=== PATIENT | female | born 1960 | race Hispanic/Latino ===

== ENCOUNTER 2021-10-17 11:33 | Observation (INO) | payer MEDICARE ==
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
[2021-10-17] MEDS ORDERED: SODIUM CHLORIDE 0.9% 1000 ML 1,000 ML IV ONE (12:23)
--- NOTE | 2021-10-17 13:19 | XRay Report ---
CHEST 1 VIEW 10/17/2021 12:07 PM INDICATION / CLINICAL INFORMATION: stage IV lung cancer, p/w weakness. COMPARISON: None available. FINDINGS: SUPPORT DEVICES: Right Holhnt-g-Chix terminates at the cavoatrial junction in good position. HEART / MEDIASTINUM: No significant abnormality. LUNGS / PLEURA: No significant pulmonary or pleural abnormality. No pneumothorax. ADDITIONAL FINDINGS: No significant additional findings. IMPRESSION: 1. No acute findings. Signer Name: Lazaro Jackson Jr, MD Signed: 10/17/2021 1:15 PM Workstation Name: [id number]
[2021-10-17] MEDS ORDERED: PROMETHAZINE 12.5 MG/10 ML ORAL LIQD PO ONE (13:24)
[2021-10-17 13:28] LABS: Alanine Aminotransferase 32 units/L (7-56); Albumin 3.6 g/dL (3.9-5); Blood Urea Nitrogen 4 mg/dL (7-17); Calcium 9.4 mg/dL (8.4-10.2); Hemolysis Index 6
[2021-10-17 13:32] LABS: BUN/Creatinine Ratio 7
[2021-10-17 14:37] LABS: Bilirubin,Urine NEG (Negative); Blood,Urine NEG (Negative); Color,Urine Yellow (Yellow); Protein,Urine <15 mg/dL mg/dL (Negative); Urobilinogen,Urine < 2.0 mg/dL (<2.0)
[2021-10-17 14:42] LABS: Bacteria,Urine 1+ /HPF (Negative)
[2021-10-17 14:45] LABS: Basophils # (Auto) 0.1 K/mm3 (0.0-0.1); Basophils % (Auto) 1.1 % (0.0-1.8); Eosinophils # (Auto) 0.1 K/mm3 (0.0-0.4); Eosinophils % (Auto) 1.7 % (0.0-4.3); Hematocrit 34.1 % (30.3-42.9); Hemoglobin 11.4 gm/dl (10.1-14.3); Lymphocytes # (Auto) 0.8 K/mm3 (1.2-5.4); Lymphocytes % (Auto) 18.1 % (13.4-35.0); Mean Corpuscular HGB Conc 34 % (30-34); Mean Corpuscular Volume 98 fl (79-97); Monocytes # (Auto) 0.3 K/mm3 (0.0-0.8); Monocytes % (Auto) 6.5 % (0.0-7.3); Platelet Count 218 K/mm3 (140-440); Red Blood Count 3.48 M/mm3 (3.65-5.03); Red Cell Distribution Width 15.9 % (13.2-15.2)
[2021-10-17] MEDS ORDERED: cefTRIAXone/NS 1 GM/50 ML 1 GM/50 ML BAG IV ONE (14:50)
[2021-10-17] MEDS ORDERED: IPRATROPIUM/ALBUTEROL SULFATE 3 ML AMPUL.NEB IH ONE (16:15)
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
[2021-10-17] MEDS ORDERED: ONDANSETRON 4 MG/2 ML INJ IV PRN (22:05)
[2021-10-17] MEDS ORDERED: METOCLOPRAMIDE 10 MG/2 ML INJ IV PRN (22:05)
[2021-10-18] MEDS: SODIUM CHLORIDE 0.9% 1000 ML 1,000 ML IV SCH ×2 (03:02→23:37)
[2021-10-18 05:46] LABS: Basophils % (Auto) 0.4 % (0.0-1.8); Eosinophils # (Auto) 0.1 K/mm3 (0.0-0.4); Eosinophils % (Auto) 2.2 % (0.0-4.3); Hemoglobin 13.1 gm/dl (10.1-14.3); Lymphocytes # (Auto) 0.7 K/mm3 (1.2-5.4); Lymphocytes % (Auto) 16.5 % (13.4-35.0); Mean Corpuscular HGB Conc 33 % (30-34); Mean Corpuscular Volume 99 fl (79-97); Monocytes # (Auto) 0.3 K/mm3 (0.0-0.8); Monocytes % (Auto) 6.9 % (0.0-7.3); Platelet Count 272 K/mm3 (140-440); Red Blood Count 4.02 M/mm3 (3.65-5.03); Red Cell Distribution Width 16.4 % (13.2-15.2)
[2021-10-18 06:05] LABS: Alanine Aminotransferase 28 units/L (7-56); Albumin 3.5 g/dL (3.9-5); Blood Urea Nitrogen 4 mg/dL (7-17); Calcium 9.4 mg/dL (8.4-10.2); Hemolysis Index 91
[2021-10-18 06:18] LABS: BUN/Creatinine Ratio 8
[2021-10-18] MEDS: HYDROmorphone 0.5 MG/0.5 ML INJ IV PRN (08:48)
[2021-10-18] MEDS: IPRATROPIUM/ALBUTEROL SULFATE 3 ML AMPUL.NEB IH SCH ×4 (08:49→20:10)
[2021-10-18] MEDS: cefTRIAXone/NS 1 GM/50 ML 1 GM/50 ML BAG IV SCH (09:05)
[2021-10-18] MEDS ORDERED: HEPARIN 5,000 UNIT/1 ML VIAL SUB-Q SCH (10:00)
--- NOTE | 2021-10-18 10:32 | Electrocardiograph Report ---
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
--- NOTE | 2021-10-18 13:31 | Progress Note ---
Assessment and Plan Assessment and plan: #Stage IV lung cancer with metastases to brain #Failure to thrive #Severe debility/deconditioning Patient endorses currently being on palliative chemotherapy and radiation ther apy Patient endorses being ready for hospice. Hospice initiation has been started from admission. Continue analgesics and supportive management #Acute cystitis without hematuria Urinalysis revealing moderate leukocyte esterase, WBC 16 Continue Rocephin 1 g every 24 hours #Chronic hypoxic respiratory failure Continue supplemental oxygen (baseline 2-3 L nasal cannula) #History of DVT Continue home Xarelto 10 mg daily #Moderate protein caloric nutrition Albumin 3.5; secondary to chemotherapy and radiation therapy in addition to having metastatic lung cancer Starting dietary supplementation #Advanced care planning -Disease education conducted, care plan discussed, diagnoses discussed, prognosis discussed, and patient acknowledges understanding with care plan -Time: +30 min #Discharge planning - Patient is pending completion of hospice set up - Case management has been made aware. - Discharge is tentatively 24-48 hours Social: Patient has limited family support and currently lives in [facility]. This may play a role in determining a hospice facility versus home hospice. Disposition Plan: Pending hospice Total Time Spent with Patient (Minutes): 45 min History Interval history: No acute events overnight. Hospitalist Physical - Constitutional Vitals: Temp Pulse Resp BP Pulse Ox 98.4 F 115 H 16 127/81 95 10/18/21 12:00 10/18/21 12:00 10/18/21 12:00 10/18/21 12:00 10/18/21 12:00 General appearance: Present: no acute distress, cachectic - EENT Eyes: Present: PERRL, EOM intact ENT: hearing intact, clear oral mucosa, dentition normal - Neck Neck: Present: supple, normal ROM - Respiratory Respiratory effort: normal Respiratory: bilateral: diminished (on 3L NC (baseline)) - Cardiovascular Rhythm: regular Heart Sounds: Present: S1 & S2 - Extremities Extremities: no ischemia, pulses intact, pulses symmetrical, No edema, normal temperature, normal color Peripheral Pulses: within normal limits - Abdominal General gastrointestinal: soft, non-tender, non-distended, normal bowel sounds - Integumentary Integumentary: Present: clear, warm, dry - Psychiatric Psychiatric: appropriate mood/affect, intact judgment & insight, memory intact, cooperative - Neurologic Neurologic: CNII-XII intact - Allied Health Allied health notes reviewed: nursing Results - Labs CBC & Chem 7: 10/18/21 04:56 10/18/21 04:56 Labs: Laboratory Last Values WBC 4.4 K/mm3 (4.5-11.0) L 10/18/21 04:56 RBC 4.02 M/mm3 (3.65-5.03) 10/18/21 04:56 Hgb 13.1 gm/dl (10.1-14.3) 10/18/21 04:56 Hct 40.0 % (30.3-42.9) 10/18/21 04:56 MCV 99 fl (79-97) H 10/18/21 04:56 MCH 33 pg (28-32) H 10/18/21 04:56 MCHC 33 % (30-34) 10/18/21 04:56 RDW 16.4 % (13.2-15.2) H 10/18/21 04:56 Plt Count 272 K/mm3 (140-440) 10/18/21 04:56 Lymph % (Auto) 16.5 % (13.4-35.0) 10/18/21 04:56 [place] % (Auto) 6.9 % (0.0-7.3) 10/18/21 04:56 Eos % (Auto) 2.2 % (0.0-4.3) 10/18/21 04:56 Baso % (Auto) 0.4 % (0.0-1.8) 10/18/21 04:56 Lymph # (Auto) 0.7 K/mm3 (1.2-5.4) L 10/18/21 04:56 [place] # (Auto) 0.3 K/mm3 (0.0-0.8) 10/18/21 04:56 Eos # (Auto) 0.1 K/mm3 (0.0-0.4) 10/18/21 04:56 Baso # (Auto) 0.0 K/mm3 (0.0-0.1) 10/18/21 04:56 Seg Neutrophils % 74.0 % (40.0-70.0) H 10/18/21 04:56 Seg Neutrophils # 3.2 K/mm3 (1.8-7.7) 10/18/21 04:56 Sodium 138 mmol/L (137-145) 10/18/21 04:56 Potassium 4.2 mmol/L (3.6-5.0) 10/18/21 04:56 Chloride 102.8 mmol/L (98-107) 10/18/21 04:56 Carbon Dioxide 24 mmol/L (22-30) 10/18/21 04:56 Anion Gap 15 mmol/L 10/18/21 04:56 BUN 4 mg/dL (7-17) L 10/18/21 04:56 Creatinine 0.5 mg/dL (0.6-1.2) L 10/18/21 04:56 Estimated GFR > 60 ml/min 10/18/21 04:56 BUN/Creatinine Ratio 8 % 10/18/21 04:56 Glucose 97 mg/dL (65-100) 10/18/21 04:56 Calcium 9.4 mg/dL (8.4-10.2) 10/18/21 04:56 Total Bilirubin 0.30 mg/dL (0.1-1.2) 10/18/21 04:56 AST 33 units/L (5-40) 10/18/21 04:56 ALT 28 units/L (7-56) 10/18/21 04:56 Alkaline Phosphatase 254 units/L (35-129) H 10/18/21 04:56 Total Protein 6.4 g/dL (6.3-8.2) 10/18/21 04:56 Albumin 3.5 g/dL (3.9-5) L 10/18/21 04:56 Albumin/Globulin Ratio 1.2 % 10/18/21 04:56 Urine Color Yellow (Yellow) 10/17/21 Unknown Urine Turbidity Clear (Clear) 10/17/21 Unknown Urine pH 6.0 (5.0-7.0) 10/17/21 Unknown Ur Specific [place] 1.012 (1.003-1.030) 10/17/21 Unknown Urine Protein <15 mg/dl mg/dL (Negative) 10/17/21 Unknown Urine Glucose (UA) Neg mg/dL (Negative) 10/17/21 Unknown Urine Ketones Neg mg/dL (Negative) 10/17/21 Unknown Urine Blood Neg (Negative) 10/17/21 Unknown Urine Nitrite Neg (Negative) 10/17/21 Unknown Urine Bilirubin Neg (Negative) 10/17/21 Unknown Urine Urobilinogen < 2.0 mg/dL (<2.0) 10/17/21 Unknown Ur Leukocyte Esterase Mod (Negative) 10/17/21 Unknown Urine WBC (Auto) 16.0 /HPF (0.0-6.0) H 10/17/21 Unknown Urine RBC (Auto) 4.0 /HPF (0.0-6.0) 10/17/21 Unknown U Epithel Cells (Auto) 11.0 /HPF (0-13.0) 10/17/21 Unknown Urine Bacteria (Auto) 1+ /HPF (Negative) 10/17/21 Unknown Microbiology: Microbiology 10/17/21 Unknown Urine,Clean Catch Urine Culture - Preliminary Gram Negative Hima Rainey/IV: Voiding Method Toilet Active Medications - Current Medications Current Medications: Generic Name Dose Route Start Last Admin Trade Name Freq PRN Reason Stop Dose Admin Acetaminophen 650 mg 10/17/21 22:05 Acetaminophen 325 Mg Tab PO Q4H PRN Pain MILD(1-3)/Fever >100.5/NOBLES Albuterol/Ipratropium 1 ampul 10/18/21 08:00 10/18/21 08:49 Ipratropium/Albuterol Sulfate 3 Ml Ampul.Neb IH 1 ampul Q4HRT ALLYSON Administration Heparin Sodium (Porcine) 5,000 unit 10/18/21 10:00 10/18/21 09:07 Heparin 5,000 Unit/1 Ml Vial SUB-Q 5,000 unit Q12HR ALLYSON Administration Hydromorphone HCl 1 mg 10/17/21 22:05 10/18/21 08:48 Hydromorphone 0.5 Mg/0.5 Ml Inj IV 1 mg Q3H PRN Administration Pain , Severe (7-10) Sodium Chloride 1,000 mls @ 75 mls/hr 10/17/21 22:15 10/18/21 03:02 Nacl 0.9% 1000 Ml IV 75 mls/hr DIRECT ALLYSON Administration Ceftriaxone Sodium 1 gm in 50 mls @ 100 mls/hr 10/18/21 10:00 10/18/21 09:05 Rocephin/Ns 1 Gm/50 Ml IV 100 mls/hr Q24HR ALLYSON Administration Protocol Metoclopramide HCl 10 mg 10/17/21 22:05 Metoclopramide 10 Mg/2 Ml Inj IV Q6H PRN Nausea And Vomiting Morphine Sulfate 2 mg 10/17/21 22:05 Morphine 2 Mg/1 Ml Inj IV Q4H PRN Pain, Moderate (4-6) Ondansetron HCl 4 mg 10/17/21 22:05 Ondansetron 4 Mg/2 Ml Inj IV Q8H PRN Nausea And Vomiting Oxycodone/Acetaminophen 1 tab 10/17/21 22:05 Oxycodone /Acetaminophen 5-325mg Tab PO Q6H PRN Pain, Moderate (4-6) Sodium Chloride 10 ml 10/18/21 10:00 Sodium Chloride 0.9% 10 Ml Flush Syringe IV BID ALLYSON Sodium Chloride 10 ml 10/17/21 22:05 Sodium Chloride 0.9% 10 Ml Flush Syringe IV PRN PRN LINE FLUSH
[2021-10-18] MEDS: RIVAROXABAN 10 MG TAB PO SCH (17:40)
[2021-10-18] MEDS: ACETAMINOPHEN 325 MG TAB PO PRN (20:27)
[2021-10-19] MEDS: IPRATROPIUM/ALBUTEROL SULFATE 3 ML AMPUL.NEB IH SCH ×5 (02:55→22:34)
[2021-10-19] MEDS: oxyCODONE /ACETAMINOPHEN 5-325MG TAB PO PRN ×2 (08:03→16:25)
[2021-10-19] MEDS: RIVAROXABAN 10 MG TAB PO SCH (09:16)
[2021-10-19] MEDS: cefTRIAXone/NS 1 GM/50 ML 1 GM/50 ML BAG IV SCH (09:17)
--- NOTE | 2021-10-19 16:41 | Progress Note ---
Assessment and Plan Assessment and plan: #Stage IV lung cancer with metastases to brain #Failure to thrive #Severe debility/deconditioning Patient endorses currently being on palliative chemotherapy and radiation ther apy Patient endorses being ready for hospice. Hospice initiation has been started from admission. Continue analgesics and supportive management #Acute cystitis without hematuria Urinalysis revealing moderate leukocyte esterase, WBC 16 Continue Rocephin 1 g every 24 hours (will complete on 10/20/2021). #Chronic hypoxic respiratory failure Continue supplemental oxygen (baseline 2-3 L nasal cannula) #History of DVT Continue home Xarelto 10 mg daily #Moderate protein caloric nutrition Albumin 3.5; secondary to chemotherapy and radiation therapy in addition to having metastatic lung cancer Starting dietary supplementation #Advanced care planning -Disease education conducted, care plan discussed, diagnoses discussed, prognosis discussed, and patient acknowledges understanding with care plan -Time: +30 min #Discharge planning - Patient is pending completion of hospice set up - Case management has been made aware. - Discharge is tentatively 24-48 hours Social: Patient has limited family support and currently lives in [facility]. This may play a role in determining a hospice facility versus home hospice. Disposition Plan: Pending hospice authorization Total Time Spent with Patient (Minutes): 45 min History Interval history: No acute events overnight. Hospitalist Physical - Constitutional Vitals: Temp Pulse Resp BP Pulse Ox 98.0 F 105 H 16 134/85 100 10/19/21 15:48 10/19/21 15:48 10/19/21 15:48 10/19/21 15:48 10/19/21 15:48 General appearance: Present: no acute distress, cachectic - EENT Eyes: Present: PERRL, EOM intact ENT: hearing intact, clear oral mucosa, other (dentures) - Neck Neck: Present: supple, normal ROM - Respiratory Respiratory effort: normal Respiratory: bilateral: diminished (2L nasal cannula (baseline)) - Cardiovascular Rhythm: regular Heart Sounds: Present: S1 & S2 - Extremities Extremities: no ischemia, pulses intact, pulses symmetrical, No edema, normal temperature, normal color Peripheral Pulses: within normal limits - Abdominal General gastrointestinal: soft, non-tender, non-distended, normal bowel sounds - Integumentary Integumentary: Present: clear, warm, dry - Psychiatric Psychiatric: appropriate mood/affect, intact judgment & insight, memory intact, cooperative - Neurologic Neurologic: CNII-XII intact, moves all extremities - Allied Health Allied health notes reviewed: nursing Results - Labs CBC & Chem 7: 10/18/21 04:56 10/18/21 04:56 Labs: Laboratory Last Values WBC 4.4 K/mm3 (4.5-11.0) L 10/18/21 04:56 RBC 4.02 M/mm3 (3.65-5.03) 10/18/21 04:56 Hgb 13.1 gm/dl (10.1-14.3) 10/18/21 04:56 Hct 40.0 % (30.3-42.9) 10/18/21 04:56 MCV 99 fl (79-97) H 10/18/21 04:56 MCH 33 pg (28-32) H 10/18/21 04:56 MCHC 33 % (30-34) 10/18/21 04:56 RDW 16.4 % (13.2-15.2) H 10/18/21 04:56 Plt Count 272 K/mm3 (140-440) 10/18/21 04:56 Lymph % (Auto) 16.5 % (13.4-35.0) 10/18/21 04:56 [place] % (Auto) 6.9 % (0.0-7.3) 10/18/21 04:56 Eos % (Auto) 2.2 % (0.0-4.3) 10/18/21 04:56 Baso % (Auto) 0.4 % (0.0-1.8) 10/18/21 04:56 Lymph # (Auto) 0.7 K/mm3 (1.2-5.4) L 10/18/21 04:56 [place] # (Auto) 0.3 K/mm3 (0.0-0.8) 10/18/21 04:56 Eos # (Auto) 0.1 K/mm3 (0.0-0.4) 10/18/21 04:56 Baso # (Auto) 0.0 K/mm3 (0.0-0.1) 10/18/21 04:56 Seg Neutrophils % 74.0 % (40.0-70.0) H 10/18/21 04:56 Seg Neutrophils # 3.2 K/mm3 (1.8-7.7) 10/18/21 04:56 Sodium 138 mmol/L (137-145) 10/18/21 04:56 Potassium 4.2 mmol/L (3.6-5.0) 10/18/21 04:56 Chloride 102.8 mmol/L (98-107) 10/18/21 04:56 Carbon Dioxide 24 mmol/L (22-30) 10/18/21 04:56 Anion Gap 15 mmol/L 10/18/21 04:56 BUN 4 mg/dL (7-17) L 10/18/21 04:56 Creatinine 0.5 mg/dL (0.6-1.2) L 10/18/21 04:56 Estimated GFR > 60 ml/min 10/18/21 04:56 BUN/Creatinine Ratio 8 % 10/18/21 04:56 Glucose 97 mg/dL (65-100) 10/18/21 04:56 Calcium 9.4 mg/dL (8.4-10.2) 10/18/21 04:56 Total Bilirubin 0.30 mg/dL (0.1-1.2) 10/18/21 04:56 AST 33 units/L (5-40) 10/18/21 04:56 ALT 28 units/L (7-56) 10/18/21 04:56 Alkaline Phosphatase 254 units/L (35-129) H 10/18/21 04:56 Total Protein 6.4 g/dL (6.3-8.2) 10/18/21 04:56 Albumin 3.5 g/dL (3.9-5) L 10/18/21 04:56 Albumin/Globulin Ratio 1.2 % 10/18/21 04:56 Urine Color Yellow (Yellow) 10/17/21 Unknown Urine Turbidity Clear (Clear) 10/17/21 Unknown Urine pH 6.0 (5.0-7.0) 10/17/21 Unknown Ur Specific [place] 1.012 (1.003-1.030) 10/17/21 Unknown Urine Protein <15 mg/dl mg/dL (Negative) 10/17/21 Unknown Urine Glucose (UA) Neg mg/dL (Negative) 10/17/21 Unknown Urine Ketones Neg mg/dL (Negative) 10/17/21 Unknown Urine Blood Neg (Negative) 10/17/21 Unknown Urine Nitrite Neg (Negative) 10/17/21 Unknown Urine Bilirubin Neg (Negative) 10/17/21 Unknown Urine Urobilinogen < 2.0 mg/dL (<2.0) 10/17/21 Unknown Ur Leukocyte Esterase Mod (Negative) 10/17/21 Unknown Urine WBC (Auto) 16.0 /HPF (0.0-6.0) H 10/17/21 Unknown Urine RBC (Auto) 4.0 /HPF (0.0-6.0) 10/17/21 Unknown U Epithel Cells (Auto) 11.0 /HPF (0-13.0) 10/17/21 Unknown Urine Bacteria (Auto) 1+ /HPF (Negative) 10/17/21 Unknown Nasal Screen MRSA (PCR) Negative (Negative) 10/18/21 02:35 Microbiology: Microbiology 10/17/21 Unknown Urine,Clean Catch Urine Culture - Final Proteus Mirabilis Rainey/IV: Voiding Method Toilet Active Medications - Current Medications Current Medications: Generic Name Dose Route Start Last Admin Trade Name Freq PRN Reason Stop Dose Admin Acetaminophen 650 mg 10/17/21 22:05 10/18/21 20:27 Acetaminophen 325 Mg Tab PO 650 mg Q4H PRN Administration Pain MILD(1-3)/Fever >100.5/NOBLES Albuterol/Ipratropium 1 ampul 10/19/21 08:00 10/19/21 13:45 Ipratropium/Albuterol Sulfate 3 Ml Ampul.Neb IH 1 ampul Q6HRT ALLYSON Administration Hydromorphone HCl 1 mg 10/17/21 22:05 10/18/21 08:48 Hydromorphone 0.5 Mg/0.5 Ml Inj IV 1 mg Q3H PRN Administration Pain , Severe (7-10) Sodium Chloride 1,000 mls @ 75 mls/hr 10/17/21 22:15 10/18/21 23:37 Nacl 0.9% 1000 Ml IV 75 mls/hr DIRECT ALLYSON Administration Ceftriaxone Sodium 1 gm in 50 mls @ 100 mls/hr 10/18/21 10:00 10/19/21 09:17 Rocephin/Ns 1 Gm/50 Ml IV 10/24/21 10:29 100 mls/hr Q24HR ALLYSON Administration Protocol Metoclopramide HCl 10 mg 10/17/21 22:05 Metoclopramide 10 Mg/2 Ml Inj IV Q6H PRN Nausea And Vomiting Morphine Sulfate 2 mg 10/17/21 22:05 Morphine 2 Mg/1 Ml Inj IV Q4H PRN Pain, Moderate (4-6) Ondansetron HCl 4 mg 10/17/21 22:05 Ondansetron 4 Mg/2 Ml Inj IV Q8H PRN Nausea And Vomiting Oxycodone/Acetaminophen 1 tab 10/17/21 22:05 10/19/21 16:25 Oxycodone /Acetaminophen 5-325mg Tab PO 1 tab Q6H PRN Administration Pain, Moderate (4-6) Rivaroxaban 10 mg 10/18/21 14:00 10/19/21 09:16 Rivaroxaban 10 Mg Tab PO 10 mg QDAY ALLYSON Administration Protocol Sodium Chloride 10 ml 10/18/21 10:00 10/19/21 09:17 Sodium Chloride 0.9% 10 Ml Flush Syringe IV 10 ml BID ALLYSON Administration Sodium Chloride 10 ml 10/17/21 22:05 Sodium Chloride 0.9% 10 Ml Flush Syringe IV PRN PRN LINE FLUSH
[2021-10-19] MEDS: SODIUM CHLORIDE 0.9% 1000 ML 1,000 ML IV SCH (21:45)
[2021-10-20] MEDS: IPRATROPIUM/ALBUTEROL SULFATE 3 ML AMPUL.NEB IH SCH ×4 (02:15→21:06)
[2021-10-20] MEDS: oxyCODONE /ACETAMINOPHEN 5-325MG TAB PO PRN ×2 (04:35→14:53)
[2021-10-20] MEDS: RIVAROXABAN 10 MG TAB PO SCH (09:18)
[2021-10-20] MEDS: cefTRIAXone/NS 1 GM/50 ML 1 GM/50 ML BAG IV SCH (09:18)
[2021-10-20] MEDS: clonazePAM 0.5 MG TAB PO SCH ×2 (10:59→21:16)
--- NOTE | 2021-10-20 12:47 | Progress Note ---
Assessment and Plan Assessment and plan: #Stage IV lung cancer with metastases to brain #Failure to thrive #Severe debility/deconditioning Patient endorses currently being on palliative chemotherapy and radiation ther apy Patient endorses being ready for hospice. Hospice initiation has been started from admission. Continue analgesics and supportive management #Acute cystitis without hematuriaresolved Urinalysis revealing moderate leukocyte esterase, WBC 16 Continue Rocephin 1 g every 24 hours (will complete on 10/20/2021). #Chronic hypoxic respiratory failure Continue supplemental oxygen (baseline 2-3 L nasal cannula) #History of DVT Continue home Xarelto 10 mg daily #Moderate protein caloric nutrition Albumin 3.5; secondary to chemotherapy and radiation therapy in addition to having metastatic lung cancer Continue dietary supplementation #Advanced care planning -Disease education conducted, care plan discussed, diagnoses discussed, prognosis discussed, and patient acknowledges understanding with care plan -Time: +30 min #Discharge planning - Patient is pending completion of hospice set up - Case management has been made aware. - Discharge is tentatively 24-48 hours Disposition Plan: Pending hospice Total Time Spent with Patient (Minutes): 45 minutes History Interval history: No acute events overnight. Hospitalist Physical - Constitutional Vitals: Temp Pulse Resp BP Pulse Ox 98.5 F 82 22 147/73 97 10/20/21 04:25 10/20/21 11:00 10/20/21 11:00 10/20/21 04:25 10/20/21 11:00 General appearance: Present: no acute distress, cachectic - EENT Eyes: Present: PERRL, EOM intact ENT: hearing intact, clear oral mucosa, other (Dentures) - Neck Neck: Present: supple, normal ROM - Respiratory Respiratory effort: normal Respiratory: bilateral: diminished (On 2 L nasal cannula (baseline)) - Cardiovascular Rhythm: regular Heart Sounds: Present: S1 & S2 - Extremities Extremities: no ischemia, pulses intact, pulses symmetrical, No edema, normal temperature, normal color Peripheral Pulses: within normal limits - Abdominal General gastrointestinal: soft, non-tender, non-distended, normal bowel sounds - Integumentary Integumentary: Present: clear, warm, dry - Psychiatric Psychiatric: appropriate mood/affect, intact judgment & insight, memory intact, cooperative - Neurologic Neurologic: CNII-XII intact, other (Generalized weakness) - Allied Health Allied health notes reviewed: nursing Results - Labs CBC & Chem 7: 06/30/22 04:56 10/18/21 04:56 Labs: Laboratory Last Values WBC 4.4 K/mm3 (4.5-11.0) L 10/18/21 04:56 RBC 4.02 M/mm3 (3.65-5.03) 10/18/21 04:56 Hgb 13.1 gm/dl (10.1-14.3) 10/18/21 04:56 Hct 40.0 % (30.3-42.9) 10/18/21 04:56 MCV 99 fl (79-97) H 10/18/21 04:56 MCH 33 pg (28-32) H 10/18/21 04:56 MCHC 33 % (30-34) 10/18/21 04:56 RDW 16.4 % (13.2-15.2) H 10/18/21 04:56 Plt Count 272 K/mm3 (140-440) 10/18/21 04:56 Lymph % (Auto) 16.5 % (13.4-35.0) 10/18/21 04:56 [place] % (Auto) 6.9 % (0.0-7.3) 10/18/21 04:56 Eos % (Auto) 2.2 % (0.0-4.3) 10/18/21 04:56 Baso % (Auto) 0.4 % (0.0-1.8) 10/18/21 04:56 Lymph # (Auto) 0.7 K/mm3 (1.2-5.4) L 10/18/21 04:56 [place] # (Auto) 0.3 K/mm3 (0.0-0.8) 10/18/21 04:56 Eos # (Auto) 0.1 K/mm3 (0.0-0.4) 10/18/21 04:56 Baso # (Auto) 0.0 K/mm3 (0.0-0.1) 10/18/21 04:56 Seg Neutrophils % 74.0 % (40.0-70.0) H 10/18/21 04:56 Seg Neutrophils # 3.2 K/mm3 (1.8-7.7) 10/18/21 04:56 Sodium 138 mmol/L (137-145) 10/18/21 04:56 Potassium 4.2 mmol/L (3.6-5.0) 10/18/21 04:56 Chloride 102.8 mmol/L (98-107) 10/18/21 04:56 Carbon Dioxide 24 mmol/L (22-30) 10/18/21 04:56 Anion Gap 15 mmol/L 10/18/21 04:56 BUN 4 mg/dL (7-17) L 10/18/21 04:56 Creatinine 0.5 mg/dL (0.6-1.2) L 10/18/21 04:56 Estimated GFR > 60 ml/min 10/18/21 04:56 BUN/Creatinine Ratio 8 % 10/18/21 04:56 Glucose 97 mg/dL (65-100) 10/18/21 04:56 Calcium 9.4 mg/dL (8.4-10.2) 10/18/21 04:56 Total Bilirubin 0.30 mg/dL (0.1-1.2) 10/18/21 04:56 AST 33 units/L (5-40) 10/18/21 04:56 ALT 28 units/L (7-56) 10/18/21 04:56 Alkaline Phosphatase 254 units/L (35-129) H 10/18/21 04:56 Total Protein 6.4 g/dL (6.3-8.2) 10/18/21 04:56 Albumin 3.5 g/dL (3.9-5) L 10/18/21 04:56 Albumin/Globulin Ratio 1.2 % 10/18/21 04:56 Urine Color Yellow (Yellow) 10/17/21 Unknown Urine Turbidity Clear (Clear) 10/17/21 Unknown Urine pH 6.0 (5.0-7.0) 10/17/21 Unknown Ur Specific [place] 1.012 (1.003-1.030) 10/17/21 Unknown Urine Protein <15 mg/dl mg/dL (Negative) 10/17/21 Unknown Urine Glucose (UA) Neg mg/dL (Negative) 10/17/21 Unknown Urine Ketones Neg mg/dL (Negative) 10/17/21 Unknown Urine Blood Neg (Negative) 10/17/21 Unknown Urine Nitrite Neg (Negative) 10/17/21 Unknown Urine Bilirubin Neg (Negative) 10/17/21 Unknown Urine Urobilinogen < 2.0 mg/dL (<2.0) 10/17/21 Unknown Ur Leukocyte Esterase Mod (Negative) 10/17/21 Unknown Urine WBC (Auto) 16.0 /HPF (0.0-6.0) H 10/17/21 Unknown Urine RBC (Auto) 4.0 /HPF (0.0-6.0) 10/17/21 Unknown U Epithel Cells (Auto) 11.0 /HPF (0-13.0) 10/17/21 Unknown Urine Bacteria (Auto) 1+ /HPF (Negative) 10/17/21 Unknown Nasal Screen MRSA (PCR) Negative (Negative) 10/18/21 02:35 Microbiology: Microbiology 10/17/21 Unknown Urine,Clean Catch Urine Culture - Final Proteus Mirabilis Rainey/IV: Voiding Method Bedside Commode Active Medications - Current Medications Current Medications: Generic Name Dose Route Start Last Admin Trade Name Freq PRN Reason Stop Dose Admin Acetaminophen 650 mg 10/17/21 22:05 10/18/21 20:27 Acetaminophen 325 Mg Tab PO 650 mg Q4H PRN Administration Pain MILD(1-3)/Fever >100.5/NOBLES Albuterol/Ipratropium 1 ampul 10/19/21 08:00 10/20/21 08:22 Ipratropium/Albuterol Sulfate 3 Ml Ampul.Neb IH Not Given Q6HRT [facility] Clonazepam 1 mg 10/20/21 11:00 10/20/21 10:59 Clonazepam 0.5 Mg Tab PO 1 mg BID ALLYSON Administration Hydromorphone HCl 1 mg 10/17/21 22:05 10/18/21 08:48 Hydromorphone 0.5 Mg/0.5 Ml Inj IV 1 mg Q3H PRN Administration Pain , Severe (7-10) Metoclopramide HCl 10 mg 10/17/21 22:05 Metoclopramide 10 Mg/2 Ml Inj IV Q6H PRN Nausea And Vomiting Morphine Sulfate 2 mg 10/17/21 22:05 Morphine 2 Mg/1 Ml Inj IV Q4H PRN Pain, Moderate (4-6) Ondansetron HCl 4 mg 10/17/21 22:05 Ondansetron 4 Mg/2 Ml Inj IV Q8H PRN Nausea And Vomiting Oxycodone/Acetaminophen 1 tab 10/17/21 22:05 10/20/21 04:35 Oxycodone /Acetaminophen 5-325mg Tab PO 1 tab Q6H PRN Administration Pain, Moderate (4-6) Rivaroxaban 10 mg 10/18/21 14:00 10/20/21 09:18 Rivaroxaban 10 Mg Tab PO 10 mg QDAY ALLYSON Administration Protocol Sodium Chloride 10 ml 10/18/21 10:00 10/20/21 09:18 Sodium Chloride 0.9% 10 Ml Flush Syringe IV 10 ml BID ALLYSON Administration Sodium Chloride 10 ml 10/17/21 22:05 Sodium Chloride 0.9% 10 Ml Flush Syringe IV PRN PRN LINE FLUSH
[2021-10-20] MEDS: MORPHINE 2 MG/1 ML INJ IV PRN (18:35)
[2021-10-21] MEDS ORDERED: IPRATROPIUM/ALBUTEROL SULFATE 3 ML AMPUL.NEB IH SCH (08:00)
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
[2021-10-21] MEDS: IPRATROPIUM/ALBUTEROL SULFATE 3 ML AMPUL.NEB IH SCH ×4 (08:46→21:57)
[2021-10-21] MEDS: clonazePAM 0.5 MG TAB PO SCH ×2 (09:24→22:55)
[2021-10-21] MEDS: oxyCODONE /ACETAMINOPHEN 5-325MG TAB PO PRN ×2 (09:24→15:18)
[2021-10-21] MEDS: RIVAROXABAN 10 MG TAB PO SCH (09:24)
--- NOTE | 2021-10-21 21:34 | Cat Scan Report ---
CT HEAD WITHOUT CONTRAST INDICATION / CLINICAL INFORMATION: Ground level fall + on Eliquis. TECHNIQUE: All CT scans at this location are performed using CT dose reduction for ALARA by means of automated e xposure control. COMPARISON: None available. FINDINGS: HEMORRHAGE: No evidence of intracranial hemorrhage or extra-axial fluid collection. EXTRA-AXIAL SPACES: There is dilatation of the subarachnoid space along the convexity of both cerebra l hemispheres. This appears to represent a manifestation of mild parenchymal volume loss. VENTRICULAR SYSTEM: Developmental asymmetry of the lateral ventricles is noted, left larger than righ t. Ventricles have an otherwise unremarkable appearance. CEREBRAL PARENCHYMA: Periventricular, deep white matter and subcortical white matter lucency is obser minnie in both cerebral hemispheres compatible with microvascular ischemic change. Encephalomalacia is s uspected in the left inferior temporal gyrus likely secondary to remote left MCA infarction. Decrease d brain parenchymal attenuation in the supraorbital gyrus of the right frontal lobe may reflect encep halomalacia due to remote brain injury. MIDLINE SHIFT OR HERNIATION: There is no mass effect. CEREBELLUM / BRAINSTEM: Brainstem and cerebellum have an unremarkable appearance. MIDLINE STRUCTURES:No abnormalities of the pituitary gland or pineal region are identified. INTRACRANIAL VESSELS: Calcified atherosclerotic plaque is seen along the course the cavernous segment s of both internal carotid arteries extending up into the communicating segments bilaterally. ORBITS: Status post bilateral cataract surgery. No additional abnormality. SOFT TISSUES of HEAD: No significant abnormality. CALVARIUM: Evaluation of bone windows reveals no abnormalities. PARANASAL SINUSES / MASTOID AIR CELLS: Visualized portions of the paranasal sinuses are free from inf lammatory mucosal disease. Mastoid air cells are normally pneumatized. ADDITIONAL FINDINGS: None. IMPRESSION: 1. Widespread white matter lucency may represent a combination microvascular ischemic change with sup erimposed left MCA infarction and remote traumatic brain injury right supraorbital gyrus. Further sunil luation with magnetic resonance imaging to be performed without and with contrast be useful for furth er clarification these findings. 2. Abnormalities are identified. Signer Name: Henry Shahid MD Signed: 10/21/2021 9:30 PM Workstation Name: [id number]
[2021-10-22] MEDS ORDERED: ALBUTEROL 2.5 MG/3 ML NEBU IH ONE (05:25)
[2021-10-22] MEDS: oxyCODONE /ACETAMINOPHEN 5-325MG TAB PO PRN (06:20)
[2021-10-22] MEDS: IPRATROPIUM/ALBUTEROL SULFATE 3 ML AMPUL.NEB IH SCH ×4 (07:58→20:33)
[2021-10-22] MEDS: RIVAROXABAN 10 MG TAB PO SCH (09:50)
[2021-10-22] MEDS: ACETAMINOPHEN 325 MG TAB PO PRN (09:50)
[2021-10-22] MEDS: clonazePAM 0.5 MG TAB PO SCH ×2 (09:50→21:17)
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
[2021-10-22] MEDS ORDERED: POTASSIUM CHLORIDE 10 MEQ 10 MEQ/100 ML BAG IV SCH (23:00)
[2021-10-23] MEDS: MORPHINE 2 MG/1 ML INJ IV PRN (06:04)
[2021-10-23] MEDS: IPRATROPIUM/ALBUTEROL SULFATE 3 ML AMPUL.NEB IH SCH ×3 (08:43→20:43)
[2021-10-23] MEDS: NICOTINE 7 MG/24 HR PATCH TD SCH (09:26)
[2021-10-23] MEDS: clonazePAM 0.5 MG TAB PO SCH ×2 (09:27→22:46)
[2021-10-23] MEDS: RIVAROXABAN 10 MG TAB PO SCH (09:27)
[2021-10-23] MEDS: HYDROmorphone 0.5 MG/0.5 ML INJ IV PRN (11:34)
--- NOTE | 2021-10-23 15:41 | Progress Note ---
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 Hospice initiation has been started from admission. Continue analgesics and supportive management #Acute cystitis without hematuriaresolved Urinalysis revealing moderate leukocyte esterase, WBC 16 Continue Rocephin 1 g every 24 hours (will complete on 10/20/2021). #Chronic hypoxic respiratory failure Continue supplemental oxygen (baseline 2-3 L nasal cannula) #History of DVT Continue home Xarelto 10 mg daily #Moderate protein caloric nutrition Albumin 3.5; secondary to chemotherapy and radiation therapy in addition to having metastatic lung cancer Continue dietary supplementation #Advanced care planning -Disease education conducted, care plan discussed, diagnoses discussed, prognosis discussed, and patient acknowledges understanding with care plan -Time: +30 min #Discharge planning - Patient is pending completion of hospice set up and placement - Case management has been made aware. - Discharge is tentatively 24-48 hours History Interval history: No acute events overnight. Patient reports feeling fine, but said due to her me dical condition. She was updated about current clinical status and attempts to find placement. Patient has no complaints at this time. Hospitalist Physical - Physical exam Narrative exam: GENERAL: Well-developed well-nourished. In no acute distress. HEENT: Alopecia. Nasal cannula in place at 2 L/min. CHEST/LUNGS: Coarse present bilaterally. HEART/CARDIOVASCULAR: RRR. No murmur, rubs or gallops appreciated. ABDOMEN: +BS. NT/ND. SKIN: No rashes noted. NEURO: No focal motor deficit. Follows all commands. MUSCULOSKELETAL: No joint effusion EXTREMITIES: No cyanosis, clubbing or edema. PSYCH: Cooperative. - Constitutional Vitals: Temp Pulse Resp BP Pulse Ox 99.7 F H 112 H 18 116/82 96 10/23/21 08:28 10/23/21 14:42 10/23/21 14:42 10/23/21 08:28 10/23/21 11:00 General appearance: Present: no acute distress, well-nourished Results - Labs CBC & Chem 7: 10/18/21 04:56 10/24/21 04:16 Labs: Laboratory Last Values WBC 4.4 K/mm3 (4.5-11.0) L 10/18/21 04:56 RBC 4.02 M/mm3 (3.65-5.03) 10/18/21 04:56 Hgb 13.1 gm/dl (10.1-14.3) 10/18/21 04:56 Hct 40.0 % (30.3-42.9) 10/18/21 04:56 MCV 99 fl (79-97) H 10/18/21 04:56 MCH 33 pg (28-32) H 10/18/21 04:56 MCHC 33 % (30-34) 10/18/21 04:56 RDW 16.4 % (13.2-15.2) H 10/18/21 04:56 Plt Count 272 K/mm3 (140-440) 10/18/21 04:56 Lymph % (Auto) 16.5 % (13.4-35.0) 10/18/21 04:56 [place]linger % (Auto) 6.9 % (0.0-7.3) 10/18/21 04:56 Eos % (Auto) 2.2 % (0.0-4.3) 10/18/21 04:56 Baso % (Auto) 0.4 % (0.0-1.8) 10/18/21 04:56 Lymph # (Auto) 0.7 K/mm3 (1.2-5.4) L 10/18/21 04:56 Bollinger # (Auto) 0.3 K/mm3 (0.0-0.8) 10/18/21 04:56 Eos # (Auto) 0.1 K/mm3 (0.0-0.4) 10/18/21 04:56 Baso # (Auto) 0.0 K/mm3 (0.0-0.1) 10/18/21 04:56 Seg Neutrophils % 74.0 % (40.0-70.0) H 10/18/21 04:56 Seg Neutrophils # 3.2 K/mm3 (1.8-7.7) 10/18/21 04:56 Sodium 138 mmol/L (137-145) 10/18/21 04:56 Potassium 4.2 mmol/L (3.6-5.0) 10/18/21 04:56 Chloride 102.8 mmol/L (98-107) 10/18/21 04:56 Carbon Dioxide 24 mmol/L (22-30) 10/18/21 04:56 Anion Gap 15 mmol/L 10/18/21 04:56 BUN 4 mg/dL (7-17) L 10/18/21 04:56 Creatinine 0.5 mg/dL (0.6-1.2) L 10/18/21 04:56 Estimated GFR > 60 ml/min 10/18/21 04:56 BUN/Creatinine Ratio 8 % 10/18/21 04:56 Glucose 97 mg/dL (65-100) 10/18/21 04:56 Calcium 9.4 mg/dL (8.4-10.2) 10/18/21 04:56 Total Bilirubin 0.30 mg/dL (0.1-1.2) 10/18/21 04:56 AST 33 units/L (5-40) 10/18/21 04:56 ALT 28 units/L (7-56) 10/18/21 04:56 Alkaline Phosphatase 254 units/L (35-129) H 10/18/21 04:56 Total Protein 6.4 g/dL (6.3-8.2) 10/18/21 04:56 Albumin 3.5 g/dL (3.9-5) L 10/18/21 04:56 Albumin/Globulin Ratio 1.2 % 10/18/21 04:56 Urine Color Yellow (Yellow) 10/17/21 Unknown Urine Turbidity Clear (Clear) 10/17/21 Unknown Urine pH 6.0 (5.0-7.0) 10/17/21 Unknown Ur Specific [place] 1.012 (1.003-1.030) 10/17/21 Unknown Urine Protein <15 mg/dl mg/dL (Negative) 10/17/21 Unknown Urine Glucose (UA) Neg mg/dL (Negative) 10/17/21 Unknown Urine Ketones Neg mg/dL (Negative) 10/17/21 Unknown Urine Blood Neg (Negative) 10/17/21 Unknown Urine Nitrite Neg (Negative) 10/17/21 Unknown Urine Bilirubin Neg (Negative) 10/17/21 Unknown Urine Urobilinogen < 2.0 mg/dL (<2.0) 10/17/21 Unknown Ur Leukocyte Esterase Mod (Negative) 10/17/21 Unknown Urine WBC (Auto) 16.0 /HPF (0.0-6.0) H 10/17/21 Unknown Urine RBC (Auto) 4.0 /HPF (0.0-6.0) 10/17/21 Unknown U Epithel Cells (Auto) 11.0 /HPF (0-13.0) 10/17/21 Unknown Urine Bacteria (Auto) 1+ /HPF (Negative) 10/17/21 Unknown Nasal Screen MRSA (PCR) Negative (Negative) 10/18/21 02:35 SARS-CoV-2 (PCR) Negative (Negative) 10/19/21 18:17 Rainey/IV: Voiding Method Bedside Commode Active Medications - Current Medications Current Medications: Generic Name Dose Route Start Last Admin Trade Name Freq PRN Reason Stop Dose Admin Acetaminophen 650 mg 10/17/21 22:05 10/22/21 09:50 Acetaminophen 325 Mg Tab PO 650 mg Q4H PRN Administration Pain MILD(1-3)/Fever >100.5/NOBLES Albuterol/Ipratropium 1 ampul 10/21/21 08:00 10/23/21 14:42 Ipratropium/Albuterol Sulfate 3 Ml Ampul.Neb IH 1 ampul TIDRT ALLYSON Administration Clonazepam 1 mg 10/20/21 11:00 10/23/21 09:27 Clonazepam 0.5 Mg Tab PO 1 mg BID ALLYSON Administration Hydromorphone HCl 1 mg 10/17/21 22:05 10/23/21 11:34 Hydromorphone 0.5 Mg/0.5 Ml Inj IV 1 mg Q3H PRN Administration Pain , Severe (7-10) Metoclopramide HCl 10 mg 10/17/21 22:05 Metoclopramide 10 Mg/2 Ml Inj IV Q6H PRN Nausea And Vomiting Morphine Sulfate 2 mg 10/17/21 22:05 10/23/21 06:04 Morphine 2 Mg/1 Ml Inj IV 2 mg Q4H PRN Administration Pain, Moderate (4-6) Nicotine 7 mg 10/23/21 10:00 10/23/21 09:26 Nicotine 7 Mg/24 Hr Patch TD 7 mg QDAY ALLYSON Administration Ondansetron HCl 4 mg 10/17/21 22:05 10/20/21 08:05 Ondansetron 4 Mg/2 Ml Inj IV 4 mg Q8H PRN Administration Nausea And Vomiting Oxycodone/Acetaminophen 1 tab 10/17/21 22:05 10/22/21 06:20 Oxycodone /Acetaminophen 5-325mg Tab PO 1 tab Q6H PRN Administration Pain, Moderate (4-6) Rivaroxaban 10 mg 10/18/21 14:00 10/23/21 09:27 Rivaroxaban 10 Mg Tab PO 10 mg QDAY ALLYSON Administration Protocol Sodium Chloride 10 ml 10/18/21 10:00 10/23/21 09:27 Sodium Chloride 0.9% 10 Ml Flush Syringe IV 10 ml BID ALLYSON Administration Sodium Chloride 10 ml 10/17/21 22:05 Sodium Chloride 0.9% 10 Ml Flush Syringe IV PRN PRN LINE FLUSH
[2021-10-24 05:07] LABS: Blood Urea Nitrogen 4 mg/dL (7-17); Calcium 9.6 mg/dL (8.4-10.2); Hemolysis Index 29
[2021-10-24 05:14] LABS: BUN/Creatinine Ratio 10
[2021-10-24] MEDS: HYDROmorphone 0.5 MG/0.5 ML INJ IV PRN (06:28)
[2021-10-24] MEDS: IPRATROPIUM/ALBUTEROL SULFATE 3 ML AMPUL.NEB IH SCH ×2 (10:08→13:58)
[2021-10-24] MEDS: RIVAROXABAN 10 MG TAB PO SCH (11:47)
[2021-10-24] MEDS: clonazePAM 0.5 MG TAB PO SCH (11:47)
[2021-10-24] MEDS: NICOTINE 7 MG/24 HR PATCH TD SCH (11:47)
--- NOTE | 2021-10-24 15:20 | Progress Note ---
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 Hospice initiation has been started from admission. Continue analgesics and supportive management #Acute cystitis without hematuriaresolved Urinalysis revealing moderate leukocyte esterase, WBC 16 Continue Rocephin 1 g every 24 hours (will complete on 10/20/2021). #Chronic hypoxic respiratory failure Continue supplemental oxygen (baseline 2-3 L nasal cannula) #History of DVT Continue home Xarelto 10 mg daily #Moderate protein caloric nutrition Albumin 3.5; secondary to chemotherapy and radiation therapy in addition to having metastatic lung cancer Continue dietary supplementation #Advanced care planning -Disease education conducted, care plan discussed, diagnoses discussed, prognosis discussed, and patient acknowledges understanding with care plan -Time: +30 min #Discharge planning - Patient is pending completion of hospice set up and placement - Case management has been made aware. - Discharge is tentatively 24-48 hours History Interval history: No acute events overnight. Patient sleeping but easy to arouse. She has no com plaints at this time and wanted to go back to sleep. Hospitalist Physical - Physical exam Narrative exam: GENERAL: Well-developed well-nourished. In no acute distress. HEENT: Alopecia. Nasal cannula in place at 2 L/min. CHEST/LUNGS: Coarse present bilaterally. HEART/CARDIOVASCULAR: RRR. No murmur, rubs or gallops appreciated. ABDOMEN: +BS. NT/ND. SKIN: No rashes noted. NEURO: No focal motor deficit. Follows all commands. MUSCULOSKELETAL: No joint effusion EXTREMITIES: No cyanosis, clubbing or edema. PSYCH: Cooperative. - Constitutional Vitals: Temp Pulse Resp BP Pulse Ox 98.7 F 118 H 18 134/93 95 10/24/21 08:28 10/24/21 08:28 10/24/21 08:28 10/24/21 08:28 10/24/21 08:29 General appearance: Present: no acute distress, well-nourished Results - Labs CBC & Chem 7: 10/18/21 04:56 10/24/21 04:16 Labs: Laboratory Last Values WBC 4.4 K/mm3 (4.5-11.0) L 10/18/21 04:56 RBC 4.02 M/mm3 (3.65-5.03) 10/18/21 04:56 Hgb 13.1 gm/dl (10.1-14.3) 10/18/21 04:56 Hct 40.0 % (30.3-42.9) 10/18/21 04:56 MCV 99 fl (79-97) H 10/18/21 04:56 MCH 33 pg (28-32) H 10/18/21 04:56 MCHC 33 % (30-34) 10/18/21 04:56 RDW 16.4 % (13.2-15.2) H 10/18/21 04:56 Plt Count 272 K/mm3 (140-440) 10/18/21 04:56 Lymph % (Auto) 16.5 % (13.4-35.0) 10/18/21 04:56 [place] % (Auto) 6.9 % (0.0-7.3) 10/18/21 04:56 Eos % (Auto) 2.2 % (0.0-4.3) 10/18/21 04:56 Baso % (Auto) 0.4 % (0.0-1.8) 10/18/21 04:56 Lymph # (Auto) 0.7 K/mm3 (1.2-5.4) L 10/18/21 04:56 [place] # (Auto) 0.3 K/mm3 (0.0-0.8) 10/18/21 04:56 Eos # (Auto) 0.1 K/mm3 (0.0-0.4) 10/18/21 04:56 Baso # (Auto) 0.0 K/mm3 (0.0-0.1) 10/18/21 04:56 Seg Neutrophils % 74.0 % (40.0-70.0) H 10/18/21 04:56 Seg Neutrophils # 3.2 K/mm3 (1.8-7.7) 10/18/21 04:56 Sodium 142 mmol/L (137-145) 10/24/21 04:16 Potassium 3.6 mmol/L (3.6-5.0) 10/24/21 04:16 Chloride 102.4 mmol/L (98-107) 10/24/21 04:16 Carbon Dioxide 25 mmol/L (22-30) 10/24/21 04:16 Anion Gap 18 mmol/L 10/24/21 04:16 BUN 4 mg/dL (7-17) L 10/24/21 04:16 Creatinine 0.4 mg/dL (0.6-1.2) L 10/24/21 04:16 Estimated GFR > 60 ml/min 10/24/21 04:16 BUN/Creatinine Ratio 10 % 10/24/21 04:16 Glucose 95 mg/dL (65-100) 10/24/21 04:16 Calcium 9.6 mg/dL (8.4-10.2) 10/24/21 04:16 Total Bilirubin 0.30 mg/dL (0.1-1.2) 10/18/21 04:56 AST 33 units/L (5-40) 10/18/21 04:56 ALT 28 units/L (7-56) 10/18/21 04:56 Alkaline Phosphatase 254 units/L (35-129) H 10/18/21 04:56 Total Protein 6.4 g/dL (6.3-8.2) 10/18/21 04:56 Albumin 3.5 g/dL (3.9-5) L 10/18/21 04:56 Albumin/Globulin Ratio 1.2 % 10/18/21 04:56 Urine Color Yellow (Yellow) 10/17/21 Unknown Urine Turbidity Clear (Clear) 10/17/21 Unknown Urine pH 6.0 (5.0-7.0) 10/17/21 Unknown Ur Specific [place] 1.012 (1.003-1.030) 10/17/21 Unknown Urine Protein <15 mg/dl mg/dL (Negative) 10/17/21 Unknown Urine Glucose (UA) Neg mg/dL (Negative) 10/17/21 Unknown Urine Ketones Neg mg/dL (Negative) 10/17/21 Unknown Urine Blood Neg (Negative) 10/17/21 Unknown Urine Nitrite Neg (Negative) 10/17/21 Unknown Urine Bilirubin Neg (Negative) 10/17/21 Unknown Urine Urobilinogen < 2.0 mg/dL (<2.0) 10/17/21 Unknown Ur Leukocyte Esterase Mod (Negative) 10/17/21 Unknown Urine WBC (Auto) 16.0 /HPF (0.0-6.0) H 10/17/21 Unknown Urine RBC (Auto) 4.0 /HPF (0.0-6.0) 10/17/21 Unknown U Epithel Cells (Auto) 11.0 /HPF (0-13.0) 10/17/21 Unknown Urine Bacteria (Auto) 1+ /HPF (Negative) 10/17/21 Unknown Nasal Screen MRSA (PCR) Negative (Negative) 10/18/21 02:35 SARS-CoV-2 (PCR) Negative (Negative) 10/19/21 18:17 Rainey/IV: Voiding Method Bedside Commode Active Medications - Current Medications Current Medications: Generic Name Dose Route Start Last Admin Trade Name Freq PRN Reason Stop Dose Admin Acetaminophen 650 mg 10/17/21 22:05 10/22/21 09:50 Acetaminophen 325 Mg Tab PO 650 mg Q4H PRN Administration Pain MILD(1-3)/Fever >100.5/NOBLES Albuterol/Ipratropium 1 ampul 10/21/21 08:00 10/24/21 13:58 Ipratropium/Albuterol Sulfate 3 Ml Ampul.Neb IH Not Given TIDRT [facility] Clonazepam 1 mg 10/20/21 11:00 10/24/21 11:47 Clonazepam 0.5 Mg Tab PO 1 mg BID ALLYSON Administration Hydromorphone HCl 1 mg 10/17/21 22:05 10/24/21 06:28 Hydromorphone 0.5 Mg/0.5 Ml Inj IV 1 mg Q3H PRN Administration Pain , Severe (7-10) Metoclopramide HCl 10 mg 10/17/21 22:05 Metoclopramide 10 Mg/2 Ml Inj IV Q6H PRN Nausea And Vomiting Morphine Sulfate 2 mg 10/17/21 22:05 10/23/21 06:04 Morphine 2 Mg/1 Ml Inj IV 2 mg Q4H PRN Administration Pain, Moderate (4-6) Nicotine 7 mg 10/23/21 10:00 10/24/21 11:47 Nicotine 7 Mg/24 Hr Patch TD 7 mg QDAY ALLYSON Administration Ondansetron HCl 4 mg 10/17/21 22:05 10/20/21 08:05 Ondansetron 4 Mg/2 Ml Inj IV 4 mg Q8H PRN Administration Nausea And Vomiting Oxycodone/Acetaminophen 1 tab 10/17/21 22:05 10/22/21 06:20 Oxycodone /Acetaminophen 5-325mg Tab PO 1 tab Q6H PRN Administration Pain, Moderate (4-6) Rivaroxaban 10 mg 10/18/21 14:00 10/24/21 11:47 Rivaroxaban 10 Mg Tab PO 10 mg QDAY ALLYSON Administration Protocol Sodium Chloride 10 ml 10/18/21 10:00 10/24/21 11:48 Sodium Chloride 0.9% 10 Ml Flush Syringe IV 10 ml BID ALLYSON Administration Sodium Chloride 10 ml 10/17/21 22:05 Sodium Chloride 0.9% 10 Ml Flush Syringe IV PRN PRN LINE FLUSH
[2021-10-24 17:05] VITALS: BP 135/84
== END 2021-10-24 18:53 | disposition home or self-care (01) ==
LOC: ED 11:33 → INTOOBSV 22:05 → 3A 22:05 → 4A 23:32
PROVIDERS: ADMIT Internal Medicine; ATTEND Student in an Organized Health Care Education/Training Program
DX: R62.7 Adult failure to thrive (principal); Z20.822 Contact with and (suspected) exposure to COVID-19; N30.00 Acute cystitis without hematuria; C79.31 Secondary malignant neoplasm of brain; C34.90 Malignant neoplasm of unspecified part of unspecified bronchus or lung; J96.11 Chronic respiratory failure with hypoxia; E44.0 Moderate protein-calorie malnutrition; Z68.25 Body mass index [BMI] 25.0-25.9, adult; Z87.891 Personal history of nicotine dependence; Z79.899 Other long term (current) drug therapy; Z98.890 Other specified postprocedural states
CPT/HCPCS: 36415; 70450; 71045; 80048; 80053; 81001; 85025; 87076; 87086; 87186; 87641; 93005; 94640; 94644; 94760; 96361; 96365; 96366; 96372; 96375; 96376; 99285; G0378; J0696; J1170; J1644; J2270; J2405; J7030; Q0169; U0003